=== PATIENT | female | born 1975 | race Two or more races ===

== ENCOUNTER → 2018-02-01 | Emergency (ER) | payer OTHER ==
[~2018-02-01] VITALS: Ht 162.6 cm; Wt 122.5 kg
[~2018-02-01] MED LIST: MICARDIS40 MG; NEXIUM40 M1; SYNTHROID200 MCG
== END | disposition home or self-care (01) ==
LOC: ER 10:58
DX: R42 Dizziness and giddiness (principal)

== ENCOUNTER 2019-06-25 09:36 | Outpatient (CLI) | payer OTHER | END 2019-06-25 09:51 | disposition home or self-care (01) | LOC: LAB 09:36 | DX: D68.4 Acquired coagulation factor deficiency (principal); D69.8 Other specified hemorrhagic conditions; D50.8 Other iron deficiency anemias ==

== ENCOUNTER 2019-07-05 10:06 | Emergency (ER) | payer OTHER ==
[~2019-07-05] VITALS: Ht 162.6 cm; Wt 122.5 kg
== END 2019-07-05 19:03 | disposition home or self-care (01) ==
LOC: ER 10:06
DX: N83.292 Other ovarian cyst, left side (principal); R10.32 Left lower quadrant pain; R16.0 Hepatomegaly, not elsewhere classified

== ENCOUNTER 2021-06-23 06:42 | Day surgery (SDC) | payer OTHER | END 2021-06-23 12:10 | disposition home or self-care (01) | LOC: AMB-ENDOS 06:42 | PROVIDERS: ATTEND Internal Medicine Gastroenterology | DX: K29.50 Unspecified chronic gastritis without bleeding (principal); Z20.822 Contact with and (suspected) exposure to COVID-19 ==